=== PATIENT | male | born 1950 ===

== ENCOUNTER 2020-12-03 08:41 | Day surgery (SDC) | payer MEDICARE ==
[~2020-12-03] VITALS: Ht 182.9 cm; Wt 85.0 kg
[2020-12-03 10:27] VITALS: BP 111/72; PULSE 70; TEMP 97.3
[2020-12-03 11:10] VITALS: BP 114/71; PULSE 76; TEMP 97
[2020-12-03 11:30] VITALS: BP 122/75; PULSE 64
--- NOTE | 2020-12-03 12:00 | NUR ---
1110 Pt returns from endo procedure via cart and RN assist to [facility] [place] [facility]. Pt ambulates from cart to recliner with RN assist. Monitors on and alarms set. Call light within reach. Report received from DANIELLE Jacobs. Pt alert and oriented. Pt requests water. Pt denies any pain or nausea. 1120 Pt taking drink well. No complications noted. 1200 Discharge instructions given to pt. All questions answered to his satisfaction. Handed to pt are a thank you card and discharge information. 1210 Pt transferred out of the hospital via wheelchair and DANIELLE Gibson assist, to private vehicle driven by friend.
[2020-12-03 13:19] VITALS: BP 124/80; PULSE 68
== END 2020-12-03 12:10 | disposition home or self-care (01) ==
LOC: SDCO 08:41
DX: Z12.11 Encounter for screening for malignant neoplasm of colon (principal); D12.5 Benign neoplasm of sigmoid colon; Z20.822 Contact with and (suspected) exposure to COVID-19; F17.210 Nicotine dependence, cigarettes, uncomplicated
CPT/HCPCS: J2704; J7030